=== PATIENT | male | born 1935 | race Caucasian/White ===

== ENCOUNTER 2017-04-01 08:30 | Emergency (ER) | payer OTHER ==
[2017-04-01 09:56] VITALS: BP 152/88
== END 2017-04-01 09:56 | disposition home or self-care (01) ==
LOC: ED 08:30
DX: Z04.1 Encounter for examination and observation following transport accident (principal); I10 Essential (primary) hypertension; Z79.899 Other long term (current) drug therapy
CPT/HCPCS: Q0092